=== PATIENT | female | born 1955 | race Hispanic/Latino ===

== ENCOUNTER 2018-12-29 06:03 | Day surgery (SDC) | payer MEDICARE, OTHER ==
[2018-12-21 16:15] VITALS: BMI 27.3
[2018-12-29 06:54] LABS: BASO # 0.02 K/mm3 (0.0-2.0); BASO % 0.3 % (0.0-3.0); EOS # 0.1 (0.0-0.7); EOS % 1.7 % (1.5-5.0); HEMOGLOBIN 10.4 g/dL (12.0-16.0); LYMPH # 2.6 (1.2-3.4); LYMPH % 41.1 % (22.0-35.0); MEAN CELL VOLUME 90.9 fl (80.0-105.0); MEAN CORPUSCULAR HEMOGLOBIN 29.7 pg (25.0-35.0); MEAN CORPUSCULAR HGB CONC 32.7 g/dl (31.0-37.0); MEAN PLATELET VOLUME 9.5 fl (7.0-11.0); MONO # 0.5 (0.1-0.6); MONO % 7.6 % (1.0-6.0); RBC 3.5 10^6/uL (3.5-6.1); WHITE BLOOD COUNT 6.3 10^3/uL (4.5-11.0)
[2018-12-29 06:58] LABS: BLOOD UREA NITROGEN 17 mg/dL (7-21); CALCIUM 9.2 mg/dL (8.4-10.5); GFR NON-AFRICAN AMERICAN > 60; HDL CHOLESTEROL 57 mg/dL (29-60)
[2018-12-29 07:02] LABS: INR 1.04; PARTIAL THROMBOPLASTIN TIME 35.3 Seconds (26.9-38.3); PROTHROMBIN TIME 11.7 SECONDS (9.4-12.5)
[2018-12-29 07:08] LABS: LDL CHOLESTEROL 53 mg/dL (0-129)
[2018-12-29] MEDS ORDERED: Nitroglycerin 50mg in D5W 0 MG/0 ML BOTTLE IV ONE (08:14)
[2018-12-29] MEDS ORDERED: Iodixanol 320 MG/ML 200 ML BOTTLE IV ONE (08:14)
[2018-12-29] MEDS ORDERED: Iodixanol 320 mg/ml 150 ml Bottle IV ONE (08:14)
[2018-12-29] MEDS ORDERED: Iohexol 350mgl/ml 50 ML ONE (08:14)
[2018-12-29] MEDS ORDERED: Lidocaine PF 2% (5 ml) Inj (For Cardiac Arrhy) ONE (08:21)
[2018-12-29] MEDS ORDERED: Midazolam 2 MG/2 ML VIAL ONE ×3 (09:04→09:15)
[2018-12-29] MEDS ORDERED: DiphenhydrAMINE 50 mg/ml Inj ONE (09:18)
[2018-12-29] MEDS ORDERED: Verapamil 0 ML ONE (09:21)
[2018-12-29 10:57] VITALS: RESP 18; TEMP 97.2
--- NOTE | 2018-12-29 12:14 | CARDCATH ---
PROCEDURE DATE: 12/29/2018 INDICATIONS: Negra Cabello is a 63-year-old female with past medical history significant for hypertension, severe COPD, peripheral vascular disease, CAD, status post stenting of RCA 5 years ago who underwent nuclear stress test which was somewhat equivocal with ST changes. She was therefore brought to the landscaping and groundskeeping laborer for evaluation and treatment of unstable angina and worsening dyspnea on exertion. PROCEDURE PERFORMED: Left heart catheterization with selective left and right coronary angiogram. A 6-Czech right femoral arterial access. Left ventriculogram. ANGIOGRAPHIC FINDINGS: Left main is a large-sized vessel that bifurcates into left anterior descending and left circumflex coronary artery. Left circumflex runs in the AV groove medium-sized vessel, gives off a small-sized obtuse marginal branch free of any obstructive disease. LAD is large-sized vessel that gives off [id number] diagonal branches has mid nonobstructive 40% calcific stenosis. Distal 0% any obstructive disease. RCA, proximal stent patent, mid nonobstructive 40%-50% stenosis, right dominant circulation, left ventricular ejection fraction 50%-55%, left ventricular end-diastolic pressure was 17 mmHg. IMPRESSION: Nonobstructive coronary artery disease, patent right coronary artery stent, normal ejection fraction, mildly elevated end-diastolic pressure. RECOMMENDATIONS: Continue aggressive medical management and risk factor modification. Kee Lomax MD [facility] # [id number]
[2018-12-29 13:00] VITALS: O2SAT 100
--- NOTE | 2018-12-29 13:10 | CARD ---
APPROVED REPORT Date of service: 12/29/2018 EKG Measurement Heart [id number] <Conclusion> Normal sinus rhythm Low voltage QRS
[2018-12-29 14:08] VITALS: BP 100/56; PULSE 52
--- NOTE | 2018-12-30 09:37 | VAS ---
DATE: 12/29/2018 INDICATIONS: Ms. Cabello is a 63-year-old female with history of advanced COPD, home O2 dependent, CAD, status post stenting of RCA, peripheral vascular disease, status post balloon angioplasty of distal aortic occlusion who was brought to the organic lab worker for evaluation and treatment of the lower extremity claudication. PROCEDURE PERFORMED: Distal abdominal aortogram of bilateral iliac runoff, selective bilateral iliofemoral angiogram of runoff. ANGIOGRAPHIC FINDINGS: Bilateral common iliac artery and external iliac artery are patent. Distal abdominal aorta is patent with no occlusion. Bilateral common femoral artery and SFA patent. Bilateral popliteal filling bilateral three-vessel runoff below the knee. Distal small vessel disease noted. IMPRESSION: Nonobstructive peripheral vascular disease, some mild slow flow seen filling in the distal circulation consistent with microvascular disease. RECOMMENDATIONS: The patient is to continue aggressive medical management, risk factor modification. The patient can be discharged in 3 hours and follow up with Dr. Lomax in 1 to 2 weeks' time. Thank you, Dr. Hanks for letting me participate in the care of your patient. Kee Lomax MD cc: .
== END 2018-12-29 15:00 | disposition home or self-care (01) ==
LOC: CATH 06:03
PROVIDERS: ATTEND Internal Medicine Interventional Cardiology
DX: I25.110 Atherosclerotic heart disease of native coronary artery with unstable angina pectoris (principal); I10 Essential (primary) hypertension; E11.51 Type 2 diabetes mellitus with diabetic peripheral angiopathy without gangrene; E78.5 Hyperlipidemia, unspecified; J44.9 Chronic obstructive pulmonary disease, unspecified; Z99.81 Dependence on supplemental oxygen; Z95.5 Presence of coronary angioplasty implant and graft
CPT/HCPCS: 36415; 80048; 80061; 85025; 85610; 85730; 86850; 86900; 93005; 93458; 99152; 99153; C1769; C1894; J1200; J1644; J2250; J3010; Q9966